=== PATIENT | female | born 1970 | race Caucasian/White ===

== ENCOUNTER 2020-12-03 19:25 | Inpatient (IN) | payer MEDICAID, OTHER ==
--- NOTE | 2020-12-03 19:58 | ED ---
General Adult HPI - General Chief complaint: Psychiatric Symptoms Stated complaint: Pickup Order Time Seen by Provider: 12/03/20 19:44 Source: patient, family, RN notes reviewed Mode of arrival: ambulatory - History of Present Illness Initial comments: Patient is a pleasant 50-year-old female presenting to the emergency department for mental health evaluation. Patient states she is depressed secondary to recent breakup with her boyfriend yesterday. Patient states other than that she is doing okay. Patient denies suicidal thoughts. Patient denies alcohol use. Patient states other than last night she has been sleeping and eating and drinking well and taking care of herself. Patient is unclear why she is actually here and does not feel it is necessary. - Related Data Home Medications Medication Instructions Recorded Confirmed No Known Home Medications 12/03/20 12/03/20 Allergies Allergy/AdvReac Type Severity Reaction Status Date / Time No Known Allergies Allergy Verified 12/03/20 22:26 Review of Systems ROS Statement: Those systems with pertinent positive or pertinent negative responses have been documented in the HPI. ROS Other: All systems not noted in ROS Statement are negative. Constitutional: Denies: fever Eyes: Denies: eye pain ENT: Denies: ear pain Respiratory: Denies: cough Cardiovascular: Denies: chest pain Endocrine: Denies: fatigue Gastrointestinal: Denies: abdominal pain Genitourinary: Denies: dysuria Musculoskeletal: Denies: back pain Skin: Denies: rash Neurological: Denies: weakness Psychiatric: Reports: depression. Denies: suicidal thoughts Past Medical History Past Medical History: No Reported History History of Any Multi-Drug Resistant Organisms: None Reported Past Surgical History: No Surgical Hx Reported Past Psychological History: No Psychological Hx Reported Smoking Status: Current every day smoker Past Alcohol Use History: Occasional Past Drug Use History: Marijuana General Exam Limitations: no limitations General appearance: alert, in no apparent distress Head exam: Present: normocephalic Eye exam: Present: normal appearance Neck exam: Present: normal inspection Respiratory exam: Present: normal lung sounds bilaterally Cardiovascular Exam: Present: regular rate, normal rhythm Extremities exam: Present: normal inspection Neurological exam: Present: alert Psychiatric exam: Present: normal affect, normal mood Skin exam: Present: normal color Course Vital Signs 12/03/20 12/03/20 19:30 22:27 Temperature 98.1 F Pulse Rate 108 H 80 Respiratory 18 18 Rate Blood Pressure 149/94 150/81 O2 Sat by Pulse 95 94 L Oximetry Medical Decision Making - Medical Decision Making Patient seen by mental health services with plans for admission. Petition was reviewed. Positive clinical certificate completed. - Lab Data Lab Results 12/03/20 Range/Units 20:00 Urine Opiates Screen Not Detected (NotDetected) Ur Oxycodone Screen Not Detected (NotDetected) Urine Methadone Screen Not Detected (NotDetected) Ur Propoxyphene Screen Not Detected (NotDetected) Ur Barbiturates Screen Not Detected (NotDetected) U Tricyclic Antidepress Not Detected (NotDetected) Ur Phencyclidine Scrn Not Detected (NotDetected) Ur Amphetamines Screen Detected H (NotDetected) U Methamphetamines Scrn Detected H (NotDetected) U Benzodiazepines Scrn Not Detected (NotDetected) Urine Cocaine Screen Not Detected (NotDetected) U Marijuana (THC) Screen Detected H (NotDetected) Disposition Clinical Impression: Psychosis Disposition: TRANSFER TO PSYCH HOSP/UNIT Is patient prescribed a controlled substance at d/c from ED?: No Referrals: None,Stated [Primary Care Provider] - 1-2 days Decision Time: 23:01
[2020-12-03 20:43] LABS: Cocaine Screen,Urine Not Detected (NotDetected); Opiate Screen,Urine Not Detected (NotDetected); Phencyclidine Screen,Urine Not Detected (NotDetected); Urn Cannabinoid Scrn Detected (NotDetected)
[2020-12-03 20:44] LABS: Amphetamine Screen,Urine Detected (NotDetected); Barbiturate Screen,Urine Not Detected (NotDetected); Benzodiazepines Screen,Urine Not Detected (NotDetected); Methadone Screen, Urine Not Detected (NotDetected); Oxycodone Screen, Urine Not Detected (NotDetected); Tricyclic Antidepressant,Urine Not Detected (NotDetected)
[2020-12-04] MEDS ORDERED: MAG HYDROX/AL HYDROX/SIMETH 30 ML CUP PO PRN (01:47)
[2020-12-04] MEDS ORDERED: LORazepam 1 MG TAB PO PRN (01:47)
[2020-12-04] MEDS ORDERED: MAGNESIUM HYDROXIDE 2,400 MG/10 ML CUP PO PRN (01:47)
[2020-12-04] MEDS ORDERED: ACETAMINOPHEN TAB 325 MG TAB PO PRN (01:47)
[2020-12-04] MEDS ORDERED: haloperidoL 5 MG TAB PO PRN (01:48)
[2020-12-04] MEDS ORDERED: HALOPERIDOL LACTATE 5 MG/ML 1 ML VIAL IM PRN (01:48)
[2020-12-04] MEDS ORDERED: LORazepam 2 MG/ML INJ IM PRN (01:48)
[2020-12-04] MEDS: NICOTINE 14MG/24HR PATCH TRANSDERM SCH (08:53)
--- NOTE | 2020-12-04 13:51 | P.HP ---
Psychiatric H&P - . H&P Date: 12/04/20 History & Physical: Allergies Allergy/AdvReac Type Severity Reaction Status Date / Time No Known Allergies Allergy Verified 12/04/20 03:15 Vital Signs Temp 98.5 F 12/04/20 01:33 Pulse 91 12/04/20 01:47 Resp 18 12/04/20 01:47 BP 143/74 12/04/20 01:47 Pulse Ox 100 12/04/20 01:47 Intake & Output 12/03/20 12/04/20 12/04/20 18:59 06:59 18:59 Weight 60 kg Laboratory Last Values Urine Opiates Screen Not Detected (NotDetected) 12/03/20 20:00 Ur Oxycodone Screen Not Detected (NotDetected) 12/03/20 20:00 Urine Methadone Screen Not Detected (NotDetected) 12/03/20 20:00 Ur Propoxyphene Screen Not Detected (NotDetected) 12/03/20 20:00 Ur Barbiturates Screen Not Detected (NotDetected) 12/03/20 20:00 U Tricyclic Antidepress Not Detected (NotDetected) 12/03/20 20:00 Ur Phencyclidine Scrn Not Detected (NotDetected) 12/03/20 20:00 Ur Amphetamines Screen Detected (NotDetected) H 12/03/20 20:00 U Methamphetamines Scrn Detected (NotDetected) H 12/03/20 20:00 U Benzodiazepines Scrn Not Detected (NotDetected) 12/03/20 20:00 Urine Cocaine Screen Not Detected (NotDetected) 12/03/20 20:00 U Marijuana (THC) Screen Detected (NotDetected) H 12/03/20 20:00 Coronavirus (PCR) Not Detected (Not Detectd) 12/03/20 23:34 12/04/20 12:14 IDENTIFYING DATA: Patient is a 50-year-old female, lives with her boyfriend in a house 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 HPI: Patient presented to the hospital yesterday and according to ER report was endorsing depression due to a recent breakup with her boyfriend yesterday. Patient apparently was very unclear why she is in the hospital and was denying any suicidal thoughts. UDS was positive for methamphetamine and THC. EPS note claimed that patient was brought in on a pickup order after having a fight with her boyfriend recently. Apparently the patient was crying uncontrollably at home and daughter had petition the patient. Apparently the daughter claimed that patient has been emotionally labile been having poor sleep and also endorsing that the IP addresses were encrypted messages that her neighbor and her boyfriend were using to communicate with each other in a plot to kill her. Patient was evaluated for psychiatric treatment and has no previous psychiatric admissions. Patient was seen today by jingle writer and agreeable to speak. Patient claims that she was trying to have a fun time with her boyfriend on Thursday and claims that "he picked up some Adderall for us to have a good time" referring to sex and states that she took approximately 2-3 pills of Adderall at that time as she has done on occasions with him. She states that after that she had no sleep for several days and began feeling "tired". She claims that she saw something on his phone while he was out fishing that looks suspicious to her. She described it as a site "that didn't work" and claims that a "error in name" message came up when she tried to click on site. She states that the words did not look right to her. She claimed that she became upset with him when he came home and started crying uncontrollably. She states that she wanted to break up with him. She also claims that he went ahead and called her 2 adult children and got them involved. She states that she was labile and emotional. She claims that she's been having poor sleep and poor appetite. She denied any changes in her mood denies any depression or anxiety at the moment. Patient denies any suicidal or homicidal ideations intent or plan. At this time patient denies any auditory or visual hallucinations. She describes having racing thoughts. Patient admits to using Adderall recreationally as described above. She claims that she smokes cigarettes daily and drinks occasional alcohol. She is denying use of any methamphetamines even though her he UDS is positive for it. She claims that the that she smokes marijuana about a joint every night. PAST PSYCHIATRIC HISTORY: Patient states that she has no psychiatric history or diagnosis. Patient denies being on any psychiatric medications. Patient denies any previous psychiatric hospitalizations. Patient denies any psychiatric outpatient follow-up. Patient denies any history of suicide attempts in the past. PMH:denies ALLERGIES: as per EMR CHEMICAL DEPENDENCY HISTORY: as per HPI FAMILY PSYCHIATRIC/SUBSTANCE USE HISTORY: denies SOCIAL HISTORY: Patient was born and raised in [facility]. She claims that she completed 1 year of college and then went to [employer]. 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 She states that she has no legal history. MENTAL STATUS EXAM: General Appearance: Patient appears to be then, stated age is alert, directable, and attempts to cooperate. Patient appears to have poor hygiene and grooming. Behavior: Patient is seated without any agitated behavior. Attempts to cooperate. Labile at times Speech: Patient's speech is rapid tone however is fluent. Mood/Affect: Patient reports their mood is "okay", affect is incongruent and labile at times Suicidality/Homicidality: Patient denies having any homicidal ideation intent or plan. Denies any suicidal ideations intent or plan Perceptions: Patient denies any visual hallucinations and denies any auditory hallucinations Though content/process: Patient has racing thoughts. Logical. Tangential. Memory and concentration: AOX3, grossly intact for the purposes of this session. Can spell "WORLD" backwards Judgment and insight: poor STRENGTHS/WEAKNESSES: strength is that patient is resilient. Weakness is that patient has poor judgment. 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 Patient has signed adult voluntary form and medication consent and is placed in patient's chart. -Medications : Will start patient on Seroquel 25 mg daily at bedtime for mood stabilization/psychosis. -Ativan and Haldol PRN for agitation/aggression -Patient was counselled on substance abuse and desired to cut back on use -Patient was informed of the risks, benefits and side effects of the medication and patient verbally consented to taking the medications. Patient signed med consent form and was placed in chart. -Internal Medicine consult to perform medical evaluation and physical. -NRT - nicotine patch -SW on board for discharge planning. Encourage patient to participate in groups to work on coping skills. 12/04/20 13:44
[2020-12-04] MEDS: QUEtiapine 25 MG TAB PO SCH ×2 (22:09→22:31)
--- NOTE | 2020-12-04 23:29 | P.CONS ---
History of Present Illness - Reason for Consult Consult date: 12/04/20 - History of Present Illness The patient is a 50-year-old female with no known PMH who was brought into the emergency room after a family member petition her due to paranoid behavior. The patient was reportedly concerned that her boyfriend and her neighbor were building a website that was encrypted in a plot to kill her. She was admitted to the mental health unit where she was seen and evaluated. Patient denied any medical complaints or history and denied taking any medications at home. She reports that she feels well and denied chest discomfort, shortness of breath, fever, chills, cough. She also denied nausea, vomiting, abdominal pain, diarrhea. The urine toxicology in the emergency room was positive for methamphetamines and marijuana. The patient reports using Adderall but denied ever using methamphetamine. She also reports using marijuana routinely. Review of systems: Pertinent positives and negatives as discussed in HPI, a complete review of systems was performed and all other systems are negative. Physical examination: General: non toxic, no distress, appears at stated age, normal weight Derm: no unusual rashes/lesions no unusual ecchymoses, warm, dry Head: atraumatic, normocephalic, symmetric Eyes: EOMI, no lid lag, anicteric sclera, pupils equal round reactive to light ENT: Nose and ears atraumatic, no thrush, no pharyngeal erythema Neck: No thyromegaly, no cervical lymphadenopathy, trachea midline, supple Mouth: no lip lesion, mucus membranes moist Cardiovascular: S1S2 reg, no murmur, positive posterior tibial pulse bilateral, no edema, capillary refill less than 2 seconds Lungs: CTA bilateral, no rhonchi, no rales , no accessory muscle use Abdominal: soft, nontender to palpation, no guarding, no appreciable organomegaly, normal bowel sounds Ext: no gross muscle atrophy, muscle strength 5 out of 5 in all 4 extremities grossly, no contractures, Neuro: CN II-XI grossly intact, light touch intact all 4 extremities, finger to nose within normal limits, Psych: Alert, oriented, Pressured speech, labile affect Assessment/plan Polysubstance abuse -Advised on importance of cessation Psychosis -As per psychiatry Thank you for allowing us to participate in the care of this patient. We will follow peripherally. Do not hesitate to contact us with questions. Someone can be reached from the [facility] hospitalist group at all hours of the day at [phone]. Past Medical History Past Medical History: No Reported History History of Any Multi-Drug Resistant Organisms: None Reported Past Surgical History: No Surgical Hx Reported Past Psychological History: No Psychological Hx Reported Smoking Status: Current every day smoker Past Alcohol Use History: Occasional Past Drug Use History: Marijuana Medications and Allergies Home Medications Medication Instructions Recorded Confirmed Type No Known Home Medications 12/03/20 12/03/20 History Allergies Allergy/AdvReac Type Severity Reaction Status Date / Time No Known Allergies Allergy Verified 12/04/20 03:15 Physical Exam Vitals: Vital Signs Temp Pulse Pulse Resp BP BP Pulse Ox 12/04/20 01:47 91 18 143/74 100 12/04/20 01:33 98.5 F 96 18 128/88 98
--- NOTE | 2020-12-05 09:20 | P.PN ---
Progress Note - Text Progress Note Date: 12/05/20 Interval History: Patient was seen wandering the hallways and was directable and agreeable to laci calderon with expert medical writer in the office. Patient appeared to be mildly more appropriately with brighter and cooperative. She claims that she slept a bit better last night however feels mildly groggy this morning. She claims that it is mainly related to her boredom on the unit. She states that "I don't want to walk the hallways and have nothing to do". She claims that she has been going to the groups and attending to participate. 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 She continues to be mildly labile and her affect. Patient's insight and judgment have been mildly improving. She claims that her mood and anxiety have been gradually improving since being on the unit. She claims multiple times that she wants to avoid taking any more recreational drugs. At this time patient denies any suicidal or homical ideations, intent or plan. Patient denies any auditory, visual hallucinations and denies any paranoia or delusions. Patient denies any side effects from the medications and has been compliant with meds. Mental Status Exam: General Appearance: Patient appears to be then, stated age is alert, directable, and attempts to cooperate. Patient appears to have poor hygiene and grooming. Behavior: Patient is seated without any agitated behavior. Labile at times, improving mildly Speech: Patient's speech is rapid tone however is fluent. Mood/Affect: Patient reports their mood is "a bit better", affect is labile at times. Suicidality/Homicidality: Patient denies having any homicidal ideation intent or plan. Denies any suicidal ideations intent or plan Perceptions: Patient denies any visual hallucinations and denies any auditory hallucinations Though content/process: Patient has racing thoughts, improving mildly. Not endorsing any delusions or paranoia today. Memory and concentration: AOX3, grossly intact for the purposes of this session. 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 Patient has signed adult voluntary form and medication consent and was placed in patient's chart. -Medications: Continue Seroquel 25 mg daily at bedtime for mood stabilization/psychosis. -When necessary Ativan and Haldol for agitation/aggression. -NRT - nicotine patch -SW on board for discharge planning. Encouraged the patient to participate in milieu. other sales support worker to get further collateral from family and prepare for likely discharge tomorrow.
[2020-12-05] MEDS: NICOTINE 14MG/24HR PATCH TRANSDERM SCH (09:41)
[2020-12-05] MEDS: QUEtiapine 25 MG TAB PO SCH (22:12)
[2020-12-06 05:25] VITALS: BP 118/78; PULSE 64; RESP 15; TEMP 97.8
--- NOTE | 2020-12-06 09:21 | P.DS ---
Providers Date of admission: 12/04/20 01:21 Expected date of discharge: 12/06/20 Attending physician: Yunior Eason MD Consults: 12/04/20 01:47 Consult Physician Routine Consulting Provider: [facility] Consult Reason/Comments: H&P and medical Do you want consulting provider notified?: Yes Primary care physician: Stated None - Discharge Diagnosis(es) (1) Stimulant-induced psychotic disorder Current Visit: Yes Status: Acute Priority: High (2) Cannabis use disorder, mild, abuse Current Visit: Yes Status: Acute Priority: Medium (3) Nicotine dependence Current Visit: Yes Status: Acute Priority: Low Hospital Course: Admission HPI: Admission note was completed by information writer "Patient is a 50-year-old female, lives with her boyfriend in a house 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 Patient presented to the hospital yesterday and according to ER report was endorsing depression due to a recent breakup with her boyfriend yesterday. Patient apparently was very unclear why she is in the hospital and was denying any suicidal thoughts. UDS was positive for methamphetamine and THC. EPS note claimed that patient was brought in on a pickup order after having a fight with her boyfriend recently. Apparently the patient was crying uncontrollably at home and daughter had petition the patient. Apparently the daughter claimed that patient has been emotionally labile been having poor sleep and also endorsing that the IP addresses were encrypted messages that her neighbor and her boyfriend were using to communicate with each other in a plot to kill her. Patient was evaluated for psychiatric treatment and has no previous psychiatric admissions. Patient was seen today by information writer and agreeable to speak. Patient claims that she was trying to have a fun time with her boyfriend on Thursday and claims that "he picked up some Adderall for us to have a good time" referring to sex and states that she took approximately 2-3 pills of Adderall at that time as she has done on occasions with him. She states that after that she had no sleep for several days and began feeling "tired". She claims that she saw something on his phone while he was out fishing that looks suspicious to her. She described it as a site "that didn't work" and claims that a "error in name" message came up when she tried to click on site. She states that the words did not look right to her. She claimed that she became upset with him when he came home and started crying uncontrollably. She states that she wanted to break up with him. She also claims that he went ahead and called her 2 adult children and got them involved. She states that she was labile and emotional. She claim s that she's been having poor sleep and poor appetite. She denied any changes in her mood denies any depression or anxiety at the moment. Patient denies any suicidal or homicidal ideations intent or plan. At this time patient denies any auditory or visual hallucinations. She describes having racing thoughts. Patient admits to using Adderall recreationally as described above. She claims that she smokes cigarettes daily and drinks occasional alcohol. She is denying use of any methamphetamines even though her he UDS is positive for it. She claims that the that she smokes marijuana about a joint every night." Hospital course: Upon admission to the unit patient was initially labile and bizarre however was directable and agreeable to commence treatment and signed adult voluntary form. Patient got along well with other patients on the unit and followed unit protocol. Patient was compliant with the medications and denied any side effects throughout hospital course. Patient was started on Seroquel 25 mg daily at bedtime for mood stabilization/psychosis. Patient spoke of her stressors and engaged in therapy both group and individual. Patient was also seen by medical team for history and physical exam. Throughout the course of the hospitalization patient gradually improved with regards to mood, anxiety, psychosis, sleep and became more future oriented with improved insight and judgment. On the day of discharge patient denied any suicidal or homicidal ideations intent or plan denied any auditory or visual hallucinations. Patient endorsed wanting to live for her family and her future. The patient denied any access to guns or weapons. Patient denied any paranoia and did not endorse any delusions. Patient does have a significant history of substance abuse and was counseled on abstaining from all substances including alcohol and marijuana. Patient was offered however declined inpatient substance-abuse rehab and wanted to stop using stimulants on her own. Patient was also counseled on the medications and need for regular compliance and was encouraged to follow-up with their outpatient appointment for mental health and also for primary care. Prior to discharge a family meeting will be arranged by health care social worker to answer any questions and ensure safety upon discharge. Mental status exam: General Appearance: Patient appears to be thin, stated age is alert, pleasant, and cooperative. Patient is in no acute distress and has improved hygiene and grooming Behavior: Patient is calmly seated without any agitated behavior. Speech: Patient's speech is fluent and nonpressured. Mood/Affect: Patient reports their mood is "better", affect is congruent and euthymic. Suicidality/Homicidality: Patient denies having any suicidal or homicidal ideation intent or plan. Perceptions: Patient denies any auditory or visual hallucinations. Though content/process: There is no evidence of any delusional thought content and thought process is linear and goal-directed. more future oriented Memory and concentration: AOX3, grossly intact for the purposes of this session. Can spell "WORLD" backwards correctly. Judgment and insight: improved with guarded prognosis Impression: Stimulant induced psychotic disorder Cannabis use disorder mild Nicotine dependence Plan: -Continue with discharge today as patient has improved and stabilized psychiatrically and is not currently an imminent threat to herself and/or others. -Continue medications: Seroquel 25 mg daily at bedtime for psychosis/mood stabilization. -Patient was counseled on the need for medication compliance and appropriate follow-up at mental health and also primary care for medical issues. Patient verbalized understanding and agreed. -Social work to arrange for and conduct family meeting to ensure safety upon discharge and answer any questions/concerns. Social work also to arrange for patients follow up appointments for psychiatric care along with follow up with primary care provider. -Patient counseled on abstaining from recreational drugs and marijuana and alcohol. Was informed/educated on the adverse effects on their physical and mental health. Patient verbally agreed and understood. Patient was offered substance abuse treatment however declined at this time as patient wants to quit using substances on her own. -Patient was instructed to return to the hospital or seek immediate medical care if their psychiatric or medical symptoms do worsen or reoccur. Allergies Allergy/AdvReac Type Severity Reaction Status Date / Time No Known Allergies Allergy Verified 12/04/20 03:15 Laboratory Results Urine Opiates Screen Not Detected (NotDetected) 12/03/20 20:00 Ur Oxycodone Screen Not Detected (NotDetected) 12/03/20 20:00 Urine Methadone Screen Not Detected (NotDetected) 12/03/20 20:00 Ur Propoxyphene Screen Not Detected (NotDetected) 12/03/20 20:00 Ur Barbiturates Screen Not Detected (NotDetected) 12/03/20 20:00 U Tricyclic Antidepress Not Detected (NotDetected) 12/03/20 20:00 Ur Phencyclidine Scrn Not Detected (NotDetected) 12/03/20 20:00 Ur Amphetamines Screen Detected (NotDetected) H 12/03/20 20:00 U Methamphetamines Scrn Detected (NotDetected) H 12/03/20 20:00 U Benzodiazepines Scrn Not Detected (NotDetected) 12/03/20 20:00 Urine Cocaine Screen Not Detected (NotDetected) 12/03/20 20:00 U Marijuana (THC) Screen Detected (NotDetected) H 12/03/20 20:00 Coronavirus (PCR) Not Detected (Not Detectd) 12/03/20 23:34 Vital Signs Temp 97.8 F 12/06/20 05:24 Pulse 64 12/06/20 05:24 Resp 15 12/06/20 05:24 BP 118/78 12/06/20 05:24 Pulse Ox 99 12/05/20 09:44 Patient Condition at Discharge: Stable Plan - Discharge Summary Discharge Rx Participant: No New Discharge Prescriptions: New QUEtiapine [SEROquel] 25 mg PO HS 30 Days tab Nicotine 14Mg/24Hr Patch [Habitrol] 1 patch TRANSDERM DAILY 14 Days patch Discharge Medication List Nicotine 14Mg/24Hr Patch [Habitrol] 1 patch TRANSDERM DAILY 14 Days patch 12/06/20 [Rx] QUEtiapine [SEROquel] 25 mg PO HS 30 Days tab 12/06/20 [Rx] Follow up Appointment(s)/Referral(s): None,Stated [Primary Care Provider] - 1-2 days Activity/Diet/Wound Care/Special Instructions: Activity and diet as tolerated. Avoid the use of street drugs and alcohol. Take all medications as prescribed. When you are in need of refills on your medications please contact your medical provider and/or outpatient psychiatrist to have this done. Please go to scheduled outpatient appointment for aftercare treatment. If symptoms return or become worse, call the crisis line at and/or go to the nearest emergency room for evaluation Discharge Disposition: HOME SELF-CARE
[2020-12-06] MEDS: NICOTINE 14MG/24HR PATCH TRANSDERM SCH (09:59)
== END 2020-12-06 10:50 | disposition home or self-care (01) | DRG 881 ==
LOC: EC 19:25 → 3MHU 12-04 01:21
PROVIDERS: ADMIT Psychiatry & Neurology Psychiatry; ATTEND Psychiatry & Neurology Psychiatry
DX: F32.9 Major depressive disorder, single episode, unspecified (principal); F12.10 Cannabis abuse, uncomplicated; F15.159 Other stimulant abuse with stimulant-induced psychotic disorder, unspecified; F17.200 Nicotine dependence, unspecified, uncomplicated; F41.9 Anxiety disorder, unspecified; Z79.899 Other long term (current) drug therapy; Z20.822 Contact with and (suspected) exposure to COVID-19
CPT/HCPCS: 80306; 82075; 87635; 99285